=== PATIENT | female | born 1945 | race Caucasian/White ===

== ENCOUNTER 2016-11-21 17:24 | Inpatient (IN) | payer MEDICARE, OTHER ==
[2016-11-21 20:15] VITALS: BP 119/86; PULSE 90; RESP 18; TEMP 97.6; O2SAT 99
[2016-11-21 21:00] VITALS: PULSE 93
[2016-11-21 22:00] VITALS: PULSE 94
[2016-11-21 23:00] VITALS: PULSE 93
--- NOTE | 2016-11-21 23:49 | RADRPT ---
EXAM DATE/TIME: 11/21/2016 23:09 [facility] COMPARISON: No previous studies available for comparison. INDICATIONS : Evaluate for pneumonia, pneumothorax or communicable disease. MEDICAL HISTORY : Removal of left lung. SURGICAL HISTORY : None. ENCOUNTER: Subsequent ACUITY: 2 days PAIN SCORE: 0/10 LOCATION: Bilateral chest FINDINGS: There is previous left pneumonectomy with mediastinal shift from right to left. Right lung is clear. No pneumothorax. No acute bony abnormality. CONCLUSION: 1. Previous left pneumonectomy. Right lung is clear. Aneesh Kamara MD on November 21, 2016 at 23:44 Board Certified Radiologist. This report was verified electronically.
[2016-11-22] VITALS (30 sets, daily range): BP systolic 79–120; BP diastolic 54–79; PULSE 93–114; RESP 16–18; TEMP 97.6–98.8; O2SAT 92–99
[2016-11-22] MEDS ORDERED: guaiFENesin E.R. 600 MG TAB PO PRN (03:00)
[2016-11-22] MEDS ORDERED: MAGNESIUM HYDROXIDE SUSP 30 ML CUP PO PRN (03:15)
[2016-11-22] MEDS ORDERED: ACETAMINOPHEN/HYDROcodone 325 MG/5 MG TAB PO PRN (03:15)
[2016-11-22] MEDS ORDERED: ONDANSETRON HCL 4 MG/2 ML VIAL IV PRN (03:15)
[2016-11-22] MEDS ORDERED: ZOLPIDEM TARTRATE 5 MG TAB PO PRN (03:15)
[2016-11-22] MEDS ORDERED: ACETAMINOPHEN 325 MG TAB PO PRN (03:15)
[2016-11-22] MEDS ORDERED: CEFEPIME 2000 MG/NS 100 ML IV SCH ×2 (04:00)
[2016-11-22 06:09] LABS: BLOOD, URINE SMALL (NEG); COMMENT (UR) CULT NOT INDICATED; CULTURE IF INDICATED CULT NOT INDICATED; GLUCOSE,URINE NEG (NEG); KETONE, URINE NEG (NEG); MUCUS URINE FEW /lpf (OCC); NITRITE,URINE NEG (NEG); SQUAMOUS EPITHELIAL CELL URINE <1 /hpf (0-5); URINE COLOR YELLOW (YELLW/STRAW)
[2016-11-22 06:46] LABS: AUTOMATED NEUTROPHIL # 12.6 TH/MM3 (1.8-7.7); BASOPHIL % 0.1 % (0.0-2.0); HEMATOCRIT 37.2 % (35.0-46.0); HEMO FLAGS DIFF FINAL; LYMPH % 3.7 % (9.0-44.0); LYMPHOCYTE # 0.5 TH/MM3 (1.0-4.8); MEAN CELL VOLUME 90.5 FL (80.0-100.0); MEAN CORPUSCULAR HGB CONC 33.1 % (32.0-36.0); MONO % 7.3 % (0.0-8.0); NEUT % 88.9 % (16.0-70.0); PLATELET COUNT 385 TH/MM3 (150-450); RED BLOOD COUNT 4.11 MIL/MM3 (4.00-5.30); RED CELL DISTRIBUTION WIDTH 12.9 % (11.6-17.2); WHITE BLOOD COUNT 14.2 TH/MM3 (4.0-11.0)
[2016-11-22 06:49] LABS: PROTHROMBIN TIME - PATIENT 10.9 SEC (9.8-11.6)
[2016-11-22 06:51] LABS: MRSA PCR NEGATIVE (NEGATIVE); STAPH AUREUS PCR NEGATIVE (NEGATIVE)
[2016-11-22 07:25] LABS: ALKALINE PHOSPHATASE 65 U/L (45-117); ALT (GPT) 45 U/L (10-53); ANION GAP 8 MEQ/L (5-15); AST (GOT) 22 U/L (15-37); BICARBONATE 31.4 MEQ/L (21.0-32.0); BLOOD UREA NITROGEN 22 MG/DL (7-18); CHLORIDE 96 MEQ/L (98-107); GLOMERULAR FILTRATION RATE 113 ML/MIN (>89); POTASSIUM 3.9 MEQ/L (3.5-5.1); SODIUM (NA) 135 MEQ/L (136-145); TOTAL BILIRUBIN ADULT 0.6 MG/DL (0.2-1.0)
[2016-11-22] MEDS: RESP: ALBUTEROL 2.5 MG/IPRATROPIUM 0.5 MG NEB (SCH) NEB ×3 (08:06→20:51)
[2016-11-22] MEDS: DOCUSATE SODIUM 100 MG CAP PO SCH ×2 (09:24→21:00)
[2016-11-22] MEDS: FUROSEMIDE 20 MG TAB PO SCH (09:24)
[2016-11-22] MEDS: POTASSIUM CHLORIDE 10 MEQ CONTROLLED RELEASE TAB PO SCH (09:24)
[2016-11-22] MEDS: DOXYCYCLINE HYCLATE 100 MG TAB PO SCH ×2 (09:25→21:08)
--- NOTE | 2016-11-22 10:13 | RADRPT ---
EXAM DATE/TIME: 11/22/2016 08:20 [facility] COMPARISON: No previous studies available for comparison. INDICATIONS : Pre-op cardiac surgery. MEDICAL HISTORY : Cardiac disorder. SURGICAL HISTORY : Left lung removed. Cardiac surgery. ENCOUNTER: Initial ACUITY: 1 day PAIN SCORE: 110 LOCATION: Bilateral neck PEAK SYSTOLIC VELOCITIES (cm/sec): ICA/CCA RATIO: Right: 1.0 Left: 0.8 ICA: Right: 115 Left: 136 CCA: Right: 117 Left: 168 ECA: Right: 168 Left: 131 VERTEBRAL: Right: 72 retrograde Left: 91 antegrade Elevated flow velocities and ICA/CCA ratios have been found to correlate with increased degrees of vessel stenosis, calculated as percentage of diameter relative to a normal segment of distal ICA/CCA FINDINGS: Ultrasound of the carotid arteries was performed bilaterally using real-time Doppler and color Dopple r imaging. Examination of the right carotid artery demonstrates mild fibrous plaque within the bifurcation. No w aveform abnormalities are identified and no spectral broadening is seen. Examination of the left carotid artery demonstrates moderate fibrous plaque within the bulb. There is elevated internal carotid velocity on left side which may correspond to 50-70% stenosis No waveform abnormalities are identified and no spectral broadening is seen. There is retrograde flow in right vertebral artery which can be seen with steal. CONCLUSION: 1. Limited velocities on the left corresponding to 5070% stenosis. Retrograde flow right vertebral ar rolo 2. CT angiography of the cervicobrachial arch and carotid arteries is recommended for further evaluat ion if clinically indicated. Roger Eng MD on November 22, 2016 at 10:09 Board Certified Radiologist. This report was verified electronically.
--- NOTE | 2016-11-22 10:14 | RADRPT ---
EXAM DATE/TIME: 11/22/2016 08:38 [facility] COMPARISON: No previous studies available for comparison. INDICATIONS : Pre-op cardiac surgery. MEDICAL HISTORY : Cardiac disorder. SURGICAL HISTORY : Left lung removed. Cardiac surgery. ENCOUNTER: Initial ACUITY: 1 day PAIN SCORE: 2/10 LOCATION: Bilateral legs. TECHNIQUE: Venous ultrasound of the left and right leg was performed from the inguinal ligament to the proximal calf. Real-time, color Doppler and spectral tracing, compression and augmentation techniques were us ed. FINDINGS: RIGHT LEG: There is normal compressibility of the deep venous system from the inguinal region to the proximal ca lf. No echogenic clot is seen in the lumen of the common femoral, femoral, popliteal, and posterior tibial veins. There is a normal response of the venous system to proximal and distal augmentation an d respiration. LEFT LEG: There is normal compressibility of the deep venous system from the inguinal region to the proximal ca lf. No echogenic clot is seen in the lumen of the common femoral, femoral, popliteal, and posterior tibial veins. There is a normal response of the venous system to proximal and distal augmentation an d respiration. CONCLUSION: 1. No evidence of deep venous thrombosis. Roger Eng MD on November 22, 2016 at 10:12 Board Certified Radiologist. This report was verified electronically.
--- NOTE | 2016-11-22 10:15 | RADRPT ---
EXAM DATE/TIME: 11/22/2016 08:47 [facility] COMPARISON: No previous studies available for comparison. INDICATIONS : Pre Op cardiac surgery. MEDICAL HISTORY : Cardiac disorder. SURGICAL HISTORY : Left lung removed. Cardiac surgery. ENCOUNTER: Initial ACUITY: 1 day PAIN SCORE: 2/10 LOCATION: Bilateral legs. GREATER SAPHENOUS VEIN THIGH: PROXIMAL: Right 1 mm Left 5 mm MID: Right 1 mm Left 4 mm DISTAL: Right 1 mm Left 2 mm CALF: PROXIMAL: Right 1 mm Left 3 mm MID: Right 1 mm Left 2 mm DISTAL: Right 1 mm Left 2 mm FINDINGS: The venous system of the lower extremities are patent by color Doppler imaging. Measurements of the leg veins (in mm) are listed above. CONCLUSION: 1. Venous mapping as above Roger Eng MD on November 22, 2016 at 10:13 Board Certified Radiologist. This report was verified electronically.
--- NOTE | 2016-11-22 12:03 | RADRPT ---
EXAM DATE/TIME: 11/22/2016 11:19 [facility] COMPARISON: No previous studies available for comparison. INDICATIONS : Shortness of breath, left lung cancer. RADIATION DOSE: 5.10 CTDIvol (mGy) MEDICAL HISTORY : Carcinoma, lung. SURGICAL HISTORY : Left lung carcinoma. ENCOUNTER: Initial ACUITY: 1 day PAIN SCALE: 0/10 LOCATION: Left chest TECHNIQUE: Volumetric scanning of the chest was performed. Using automated exposure control and adjustment of t he mA and/or kV according to patient size, radiation dose was kept as low as reasonably achievable to obtain optimal diagnostic quality images. FINDINGS: LUNGS: 6 mm oval nodular density along the major fissure in the right midlung on image #37. There is evidenc e of prior left pneumonectomy with coarse diffuse pleural calcification. MEDIASTINUM: Diffuse aortic ossification. Aortic diameter within normal limits. No enlarged lymph nodes. Small per icardial effusion. AXILLAE: Within normal limits. No lymphadenopathy. MUSCULOSKELETAL: Within normal limits for patient age. MISCELLANEOUS: The visualized upper abdominal organs demonstrate no acute abnormality. CONCLUSION: 1. Status post left pneumonectomy. 2. 6 mm nodular density adjacent to the major fissure in the right midlung, likely represents an intr apulmonary lymph node. Recommend 6 month followup noncontrast chest CT. Ralf Wynn MD on November 22, 2016 at 11:56 Board Certified Radiologist. This report was verified electronically.
[2016-11-22] MEDS: ENOXAPARIN SODIUM 40 MG/0.4 ML SYRINGE SQ SCH (12:08)
[2016-11-22] MEDS ORDERED: predniSONE 20 MG TAB PO ONE (15:00)
--- NOTE | 2016-11-22 16:15 | MB ---
cc: SHELL YOUNG DATE OF CONSULTATION: 11/22/2016 REASON FOR CONSULTATION: A 71-year-old female; DATE OF : 1945. HISTORY: Transferred from [facility] yesterday evening. Apparently she was admitted there on the with worsening shortness of breath for the last couple of days apparently had some productive cough and yellowish sputum. She was found to have significant pneumonia in the right lung. She has a history of a pneumonectomy 25 years ago secondary to lung cancer. She was treated with Cefepime, Doxycycline, Steroids and albuterol neb's. She underwent CT chest which showed small right pleural effusion and extensive interstitial ground glass infiltrates on the right middle and lower lung possible secondary to pulmonary edema versus a pneumonia, however she did have an elevated white count of 11. White cell count is 14, however she has been on steroids. No further fevers. She underwent echocardiogram because of her significant shortness of breath and was found to have significant aortic stenosis, valve area of 0.5, mild tricuspid regurgitation. Mild mitral as regurgitation. Pulmonary peak pressures of 58, ejection fraction of 55-60%. She then underwent cardiac cath which revealed approximately 50% left main disease. She was transferred to us to evaluate for aortic valve replacement, the cardiac films and the x-rays have all been reviewed by Dr. Shell Young and we discussed the entire process with the patient and she is from the [place] area is only down here visiting a friend and was helping her to some moving and she is requesting to go back home to [place] soon as possible and have the surgery done there. PAST MEDICAL HISTORY: Her past medical history significant for; 1. Left pneumonectomy, secondary to lung cancer. 2. Recent pneumonia. 3. Cataract surgery. ALLERGIES NO KNOWN DRUG ALLERGIES MEDICATIONS: Home medications reviewed and also the medications she was on at [facility] which includes; 1. Doxycycline. 2. Cefepime 2 grams 3. Methylprednisone 40 mg 4. Metoprolol 25 b.i.d. REVIEW OF SYSTEMS IN GENERAL: No night sweats, positive for recent fevers, chills. HEAD, EYES, EARS, NOSE, AND THROAT: No blurred vision, hearing loss. RESPIRATORY: Positive for shortness of breath. CARDIOVASCULAR SYSTEM: No chest pain. No paroxysmal nocturnal dyspnea. No orthopnea. GASTROINTESTINAL: No diarrhea, vomiting. GENITOURINARY: No burning frequency, urgency CENTRAL NERVOUS SYSTEM: No history of TIA, CVA, seizure disorder, ENDOCRINOLOGY: No history of diabetes and/or hypothyroidism. PHYSICAL EXAMINATION: VITAL SIGNS: Blood pressure 100/70, heart rate 96, afebrile. HEAD, EYES, EARS, NOSE, AND THROAT: The head is normocephalic, atraumatic. Pupils equal, round and reactive. The oral mucosa is pink and moist. NECK: The neck is supple, no jugular venous distention. HEART: The heart sounds are S1, S2. Regular rate and rhythm with a grade 3/6 systolic murmur best noted in the left sternal border. LUNGS: Lungs with some coarse breath sounds on the right with some expiratory wheeze. There is no audible lung sounds on the left. ABDOMEN: Soft, nontender. No masses or organomegaly. EXTREMITIES: No cyanosis, clubbing or edema. LABORATORY FINDINGS: Lab work shows hemoglobin 12, hematocrit 37, white cell count 14, platelet count of 385, sodium 135, potassium 3.9, BUN of 22, creatinine 0.53, INR 1.0. Urinalysis is unremarkable. Negative MRSA blood cultures are pending. She did however have a set of blood cultures done at [facility] which were unremarkable. The radiological exams as above in HPI and also the echocardiogram. IMPRESSION This is a pleasant 71-year-old patient transferred from [facility] for critical aortic stenosis with a mean valve area 0.6, showing severe aortic stenosis and also some mild to moderate regurgitation, approximately 50% and left main disease. The patient is pain free and just recently treated for a right-sided pneumonia with cefepime and doxycycline. At this time the patients x-rays and films were all were evaluated by Dr. Shell Young and did discussed with the patient the plan. She is requesting to be able to be discharged in go back all the [place], recommend possible discharge in the a.m. and we will obtain all her records on CD's to give to the patient and she has a follow up with her primary care early next week to be then evaluated by and referred to the sports director. The primary care physician is Alfonso Diez in [facility] and that telephone number is [phone]. DICTATED BY: Erin Galileo, DIAL REFINISHER-C Shell MD Chidi Shelley /2:44 PM /4:11 PM
[2016-11-22] MEDS: METOPROLOL TARTRATE 25 MG TAB PO SCH (21:00)
[2016-11-22] MEDS: BUDESONIDE-FORMOTEROL 160/4.5 MCG INHALER INH SCH (21:08)
[2016-11-23] VITALS (15 sets, daily range): BP systolic 88–105; BP diastolic 50–76; PULSE 84–110; RESP 16–18; TEMP 97.9–98.2; O2SAT 94–99
[2016-11-23 06:56] LABS: AUTOMATED NEUTROPHIL # 7.7 TH/MM3 (1.8-7.7); BASOPHIL % 0.1 % (0.0-2.0); EOSINOPHIL % 0.5 % (0.0-4.0); HEMATOCRIT 33.6 % (35.0-46.0); HEMO FLAGS DIFF FINAL; LYMPH % 10.2 % (9.0-44.0); MEAN CELL VOLUME 89.7 FL (80.0-100.0); MEAN CORPUSCULAR HEMOGLOBIN 30.9 PG (27.0-34.0); MEAN CORPUSCULAR HGB CONC 34.5 % (32.0-36.0); MONO % 9.6 % (0.0-8.0); NEUT % 79.6 % (16.0-70.0); PLATELET COUNT 375 TH/MM3 (150-450); RED BLOOD COUNT 3.74 MIL/MM3 (4.00-5.30); RED CELL DISTRIBUTION WIDTH 13.1 % (11.6-17.2); WHITE BLOOD COUNT 9.7 TH/MM3 (4.0-11.0)
[2016-11-23 07:23] LABS: HDL CHOLESTEROL 70.6 MG/DL (40.0-60.0)
[2016-11-23] MEDS: RESP: ALBUTEROL 2.5 MG/IPRATROPIUM 0.5 MG NEB (SCH) NEB ×2 (08:05→11:25)
[2016-11-23] MEDS: DOXYCYCLINE HYCLATE 100 MG TAB PO SCH (08:24)
[2016-11-23] MEDS: POTASSIUM CHLORIDE 10 MEQ CONTROLLED RELEASE TAB PO SCH (08:25)
[2016-11-23] MEDS: DOCUSATE SODIUM 100 MG CAP PO SCH (08:25)
[2016-11-23] MEDS: FUROSEMIDE 20 MG TAB PO SCH (08:25)
[2016-11-23] MEDS: BUDESONIDE-FORMOTEROL 160/4.5 MCG INHALER INH SCH (08:25)
[2016-11-23] MEDS: METOPROLOL TARTRATE 25 MG TAB PO SCH (08:25)
[2016-11-23] MEDS ORDERED: ASPIRIN EC 81 MG TABEC PO SCH (09:00)
[2016-11-23] MEDS: ENOXAPARIN SODIUM 40 MG/0.4 ML SYRINGE SQ SCH (10:58)
--- NOTE | 2016-11-23 11:18 | PD.CAR.PN ---
CVT Progress Note Subjective/Hospital Course: 71/ female , recent dx of PNA, abnormal echo which showed aortic valve area 0.5 / 50% LM dsease Objective: Vital Signs Date Time Temp Pulse Resp B/P Pulse Ox O2 Delivery O2 Flow Rate FiO2 11/23/16 08:09 99 21 11/23/16 08:00 98.1 108 18 105/76 94 11/23/16 08:00 110 11/23/16 06:00 96 11/23/16 05:00 96 11/23/16 04:50 97.9 93 18 105/50 99 11/23/16 04:00 98 11/23/16 03:00 84 11/23/16 02:00 96 11/23/16 01:00 96 11/23/16 00:00 96 11/22/16 23:10 98.6 100 18 79/58 99 120/55 11/22/16 23:00 100 11/22/16 22:00 108 11/22/16 21:00 98 11/22/16 20:53 94 11/22/16 20:00 110 11/22/16 19:30 98.6 100 18 83/56 99 11/22/16 19:00 106 11/22/16 17:00 102 11/22/16 16:59 98.4 93 16 81/57 93 11/22/16 16:46 98.8 105 16 81/54 92 11/22/16 16:00 104 11/22/16 15:00 114 11/22/16 14:00 102 11/22/16 13:00 104 11/22/16 12:09 105 16 84/54 94 11/22/16 12:00 106 11/22/16 11:50 95 Labs: Laboratory Tests Test 11/23/16 05:48 White Blood Count 9.7 TH/MM3 (4.0-11.0) Red Blood Count 3.74 MIL/MM3 (4.00-5.30) Hemoglobin 11.6 GM/DL (11.6-15.3) Hematocrit 33.6 % (35.0-46.0) Mean Corpuscular Volume 89.7 FL (80.0-100.0) Mean Corpuscular Hemoglobin 30.9 PG (27.0-34.0) Mean Corpuscular Hemoglobin 34.5 % Concent (32.0-36.0) Red Cell Distribution Width 13.1 % (11.6-17.2) Platelet Count 375 TH/MM3 (150-450) Mean Platelet Volume 8.1 FL (7.0-11.0) Neutrophils (%) (Auto) 79.6 % (16.0-70.0) Lymphocytes (%) (Auto) 10.2 % (9.0-44.0) Monocytes (%) (Auto) 9.6 % (0.0-8.0) Eosinophils (%) (Auto) 0.5 % (0.0-4.0) Basophils (%) (Auto) 0.1 % (0.0-2.0) Neutrophils # (Auto) 7.7 TH/MM3 (1.8-7.7) Lymphocytes # (Auto) 1.0 TH/MM3 (1.0-4.8) Monocytes # (Auto) 0.9 TH/MM3 (0-0.9) Eosinophils # (Auto) 0.0 TH/MM3 (0-0.4) Basophils # (Auto) 0.0 TH/MM3 (0-0.2) CBC Comment DIFF FINAL Differential Comment Triglycerides Level 93 MG/DL (42-150) Cholesterol Level 187 MG/DL (120-200) LDL Cholesterol 98 MG/DL (0-99) HDL Cholesterol 70.6 MG/DL (40.0-60.0) Cholesterol/HDL Ratio 2.64 RATIO Result Diagram: 11/23/16 0548 11/22/16 0600 Angie Gurrola Nov 23, 2016 11:18
--- NOTE | 2016-11-23 13:36 | PD.CAR.PN ---
CVT Progress Note Subjective/Hospital Course: 71/ female , recent dx of PNA, abnormal echo which showed aortic valve area 0.5 / underwent cardiac cath , 50% LM disease, and transferred here from [facility] pt is here from [place] visiting with her friend , wants to return to [place] and f/u with cardiology and her PCP next to eval for surgery at home + aortic calcifications / recommend TAVR PMH : Left pneumonectomy 2/2 lung CA 25 yrs ago 11/23 on room air no further wheezing pt is stable for dc and will return home to [place] and has appointment with her primary care Dr Alfonso Cat [place] on 11/29 all records to go with pt/ including discs Objective: GENERAL: SKIN: Warm and dry. HEAD: Normocephalic. EYES: No scleral icterus. No injection or drainage. NECK: Supple, trachea midline. No JVD or lymphadenopathy. CARDIOVASCULAR: Regular rate and rhythm without murmurs, gallops, or rubs. RESPIRATORY: no breath sound on left/ right clear to auscultation No accessory muscle use. GASTROINTESTINAL: Abdomen soft, non-tender, nondistended. MUSCULOSKELETAL: No cyanosis, or edema. BACK: Nontender without obvious deformity. No CVA tenderness. Vital Signs Date Time Temp Pulse Resp B/P Pulse Ox O2 Delivery O2 Flow Rate FiO2 11/23/16 12:00 98.2 100 16 88/62 95 11/23/16 12:00 107 11/23/16 11:00 100 11/23/16 10:00 94 11/23/16 09:00 96 11/23/16 08:09 99 21 11/23/16 08:00 98.1 108 18 105/76 94 11/23/16 08:00 110 11/23/16 07:00 104 11/23/16 06:00 96 11/23/16 05:00 96 11/23/16 04:50 97.9 93 18 105/50 99 11/23/16 04:00 98 11/23/16 03:00 84 11/23/16 02:00 96 11/23/16 01:00 96 11/23/16 00:00 96 11/22/16 23:10 98.6 100 18 79/58 99 120/55 11/22/16 23:00 100 11/22/16 22:00 108 11/22/16 21:00 98 11/22/16 20:53 94 11/22/16 20:00 110 11/22/16 19:30 98.6 100 18 83/56 99 11/22/16 19:00 106 11/22/16 17:00 102 11/22/16 16:59 98.4 93 16 81/57 93 11/22/16 16:46 98.8 105 16 81/54 92 11/22/16 16:00 104 11/22/16 15:00 114 11/22/16 14:00 102 Labs: Laboratory Tests Test 11/23/16 05:48 White Blood Count 9.7 TH/MM3 (4.0-11.0) Red Blood Count 3.74 MIL/MM3 (4.00-5.30) Hemoglobin 11.6 GM/DL (11.6-15.3) Hematocrit 33.6 % (35.0-46.0) Mean Corpuscular Volume 89.7 FL (80.0-100.0) Mean Corpuscular Hemoglobin 30.9 PG (27.0-34.0) Mean Corpuscular Hemoglobin 34.5 % Concent (32.0-36.0) Red Cell Distribution Width 13.1 % (11.6-17.2) Platelet Count 375 TH/MM3 (150-450) Mean Platelet Volume 8.1 FL (7.0-11.0) Neutrophils (%) (Auto) 79.6 % (16.0-70.0) Lymphocytes (%) (Auto) 10.2 % (9.0-44.0) Monocytes (%) (Auto) 9.6 % (0.0-8.0) Eosinophils (%) (Auto) 0.5 % (0.0-4.0) Basophils (%) (Auto) 0.1 % (0.0-2.0) Neutrophils # (Auto) 7.7 TH/MM3 (1.8-7.7) Lymphocytes # (Auto) 1.0 TH/MM3 (1.0-4.8) Monocytes # (Auto) 0.9 TH/MM3 (0-0.9) Eosinophils # (Auto) 0.0 TH/MM3 (0-0.4) Basophils # (Auto) 0.0 TH/MM3 (0-0.2) CBC Comment DIFF FINAL Differential Comment Triglycerides Level 93 MG/DL (42-150) Cholesterol Level 187 MG/DL (120-200) LDL Cholesterol 98 MG/DL (0-99) HDL Cholesterol 70.6 MG/DL (40.0-60.0) Cholesterol/HDL Ratio 2.64 RATIO Result Diagram: 11/23/16 0548 11/22/16 0600 EKG: NSR (1) Severe aortic stenosis Plan: recommend TAVR (2) COPD (chronic obstructive pulmonary disease) Plan: symbicort / medrol dose abad (3) hx of left pneumonectomy (4) CAD (coronary artery disease) Plan: ASA, BB statin (5) CAP (community acquired pneumonia) Plan: continue doxycline x 5 days Angie Gurrola Nov 23, 2016 13:36
[2016-11-23] MEDS ORDERED: DOXY100T PO (14:48)
[2016-11-23] MEDS ORDERED: METO25TA3 PO (14:48)
[2016-11-23] MEDS ORDERED: POTA-243 PO (14:48)
[2016-11-23] MEDS ORDERED: FURO20TA PO (14:48)
[2016-11-23] MEDS ORDERED: MUCI600T PO (14:48)
[2016-11-23] MEDS ORDERED: ASPI81TA11 PO (14:48)
[2016-11-23] MEDS ORDERED: LIPI10TA PO (14:48)
[2016-11-23] MEDS ORDERED: MEDR4PAK PO (14:49)
[2016-11-23] MEDS ORDERED: SYMB160A INH (14:49)
[2016-11-23] MEDS ORDERED: VENTAER INH (14:49)
--- NOTE | 2016-11-23 15:01 | HHI.DS ---
Discharge Summary Admission Date Nov 21, 2016 at 21:30 Discharge Date: Nov 23, 2016 Admitting Diagnosis aortic stenosis / CAD (1) COPD (chronic obstructive pulmonary disease) Diagnosis: Principal (2) CAD (coronary artery disease) Diagnosis: Principal (3) CAP (community acquired pneumonia) Diagnosis: Principal (4) Severe aortic stenosis Diagnosis: Principal (5) hx of left pneumonectomy Diagnosis: Principal Brief History 71/ female , recent dx of PNA, abnormal echo which showed aortic valve area 0.5 / 50% LM disease treated for PNA / underwent heart cath by Dr Jimmy Rios/ transferred to our facility eval for aortic valve replacement cath films eval by Dr ojeda/ recommends TAVR at [facility] pt wants to go back home to [place] to have surgery CBC/BMP: 11/23/16 0548 11/22/16 0600 Significant Findings Laboratory Tests Test 11/22/16 11/22/16 11/23/16 05:56 06:00 05:48 Urine Protein 100 mg/dL (NEG-TRACE) Urine Occult Blood SMALL (NEG) Urine Mucus FEW /lpf (OCC) White Blood Count 14.2 TH/MM3 (4.0-11.0) Neutrophils (%) (Auto) 88.9 % 79.6 % (16.0-70.0) (16.0-70.0) Lymphocytes (%) (Auto) 3.7 % (9.0-44.0) Neutrophils # (Auto) 12.6 TH/MM3 (1.8-7.7) Lymphocytes # (Auto) 0.5 TH/MM3 (1.0-4.8) Monocytes # (Auto) 1.0 TH/MM3 (0-0.9) Sodium Level 135 MEQ/L (136-145) Chloride Level 96 MEQ/L (98-107) Blood Urea Nitrogen 22 MG/DL (7-18) Random Glucose 111 MG/DL (74-106) Albumin 3.1 GM/DL (3.4-5.0) Red Blood Count 3.74 MIL/MM3 (4.00-5.30) Hematocrit 33.6 % (35.0-46.0) Monocytes (%) (Auto) 9.6 % (0.0-8.0) HDL Cholesterol 70.6 MG/DL (40.0-60.0) Imaging Last Impressions Lower Extremity Ultrasound 11/22/16 0000 Signed Impressions: Service Date/Time: October 08:47 - CONCLUSION: 1. Venous mapping as above Roger Eng MD Carotid Artery Ultrasound 11/22/16 0000 Signed Impressions: Service Date/Time: October 08:20 - CONCLUSION: 1. Limited velocities on the left corresponding to 5070%% stenosis. Retrograde flow right vertebral artery 2. CT angiography of the cervicobrachial arch and carotid arteries is recommended for further evaluation if clinically indicated. Roger Eng MD Chest X-Ray 11/21/16 2250 Signed Impressions: Service Date/Time: Monday, November 21, 2016 23:09 - CONCLUSION: 1. Previous left pneumonectomy. Right lung is clear. Aneesh Kamara MD Chest CT 11/21/16 0000 Signed Impressions: Service Date/Time: October 11:19 - CONCLUSION: 1. Status post left pneumonectomy. 2. 6 mm nodular density adjacent to the major fissure in the right midlung, likely represents an intrapulmonary lymph node. Recommend 6 month followup noncontrast chest CT. Ralf Wynn MD Hospital Course 11/23 pt overall improved on room air will dc with Doxycline medrol dose abad / ventolin inhaler has appointment with PCP Dr Alfonso Diez will be flying home on Saturday Discharge Disposition: Discharge Home Discharge Instructions DIET: Follow Instructions for: Heart Healthy Diet Activities you can perform: Regular-No Restrictions Activities to avoid: Strenuous Activity Follow up Referrals: PCP Follow-up - [address] Alfonso Diez New Medications: Albuterol 18 GM Inh (Ventolin Hfa 18 GM Inh) 90 Mcg/Act Aer 2 PUFF INH Q4-6H PRN SHORTNESS OF BREATH #1 Ref 0 INHALER Atorvastatin (Lipitor) 10 Mg Tab 10 MG PO HS Cholesterol Management #30 Ref 0 TAB Budesonide-Formoterol Inh (Symbicort Inh) 160-4.5 Mcg/Act Aero 2 PUFF INH Q12HR #1 Ref 0 INHALER Methylprednisolone Dosepak (Medrol Dosepak) 4 Mg Dspk 4 MG PO DIRECTED Per Pharmacist direction #1 Ref [address] (Aspirin EC) 81 Mg Tabdr 81 MG PO DAILY Blood Clot Prevention #100 TAB Doxycycline Hyclate (Doxycycline Hyclate) 100 Mg Tab 100 MG PO BID pneumonia #10 Ref 0 TAB Furosemide (Furosemide) 20 Mg Tab 20 MG PO DAILY edema #30 Ref 0 TAB Guaifenesin ER 12 HR (Mucinex ER 12 HR) 600 Mg Grant 600 MG PO Q12H PRN CONGESTION #14 TAB Metoprolol Tartrate (Metoprolol Tartrate) 25 Mg Tab 12.5 MG PO Q12HR Blood Pressure Management #60 Ref 0 TAB Potassium Chloride ER (Klor-Con 10) 10 Meq Tab 10 MEQ PO DAILY potassium #30 Ref 0 TAB Angie Gurrola Nov 23, 2016 15:01
== END 2016-11-23 15:23 | disposition home or self-care (01) | DRG 306 ==
LOC: HCIS 21:30
PROVIDERS: ADMIT Thoracic Surgery (Cardiothoracic Vascular Surgery); ATTEND Thoracic Surgery (Cardiothoracic Vascular Surgery)
DX: I35.2 Nonrheumatic aortic (valve) stenosis with insufficiency (principal); J18.9 Pneumonia, unspecified organism; J44.0 Chronic obstructive pulmonary disease with (acute) lower respiratory infection; I25.10 Atherosclerotic heart disease of native coronary artery without angina pectoris; Z53.29 Procedure and treatment not carried out because of patient's decision for other reasons; Z85.118 Personal history of other malignant neoplasm of bronchus and lung
CPT/HCPCS: 71010; 71250; 80053; 80061; 81001; 82948; 85025; 85610; 87040; 87640; 87641; 93880; 93970; 93998; 94640; 94664; 94667; 94668; J0692; J1650; J7512